=== PATIENT | male | born 1990 | race Caucasian/White ===

== ENCOUNTER 2017-03-25 21:27 | Emergency (ER) | payer BC, OTHER ==
[~2017-03-25] VITALS: Ht 190.5 cm; Wt 116.1 kg
--- NOTE | 2017-03-25 21:46 | ED Upper Extremity ---
General Chief Complaint: Upper Extremity Stated Complaint: LT HAND PAIN/SWELLING Source: patient History of Present Illness Time seen by provider: 21:38 Initial Comments C/O KNOT TO DORSAL ASPECT OF LEFT WRIST FOR A COUPLE OF DAYS PAIN IN AREA WITH GRIPPING OR TOUCHING IT TOUCHING IT OCCASIONALLY CAUSES TINGLING TO HAND NO RECENT OR OLD INJURY TO THIS WRIST/HAND PT IS RIGHT HANDED HAS NOT TAKEN ANYTHING FOR PAIN SYMPTOMS NO DIFFERENT TODAY PCP: DR. TRIANA, [facility] Allergies and Home Medications Allergies Coded Allergies: No Known Drug Allergies (Unverified , 03/25/17) Home Medications Methylprednisolone 4 Mg Tab.ds.pk, 4 MG PO UD, #1 Prescribed by: MADY VILLEGAS on 03/25/17 4159 Constitutional: no symptoms reported Musculoskeletal: see HPI Skin: no symptoms reported Psychiatric/Neurological: See HPI Past Jzlobky-Wtswad-Zajhyq Hx Patient Social History Recent Foreign Travel: No Contact w/Someone Who Travel: No Respiratory History of Respiratory Disorde: No Cardiovascular History of Cardiac Disorders: No Neurological History of Neurological Disord: No Genitourinary History of Genitourinary Disor: No Gastrointestinal History of Gastrointestinal Di: No Musculoskeletal History of Musculoskeletal Dis: No Endocrine History of Endocrine Disorders: No HEENT History of HEENT Disorders: No Cancer History of Cancer: No Psychosocial History of Psychiatric Problem: No Integumentary History of Skin or Integumenta: No Blood Transfusions History of Blood Disorders: No Physical Exam Vital Signs Vital Sign - Last 12Hours 03/25/17 21:39 Temp 97.3 Pulse 62 Resp 18 B/P (MAP) 129/91 Pulse Ox 98 O2 Delivery Room Air Capillary Refill : General Appearance: WD/WN, no apparent distress Elbow/Forearm: normal inspection, non-tender, no evidence of injury, normal ROM Wrist: Yes normal ROM, Yes bone tenderness, Yes nodules (TENDER 2 CM, SLIGHTLY FIRM NODULARITY TO DORSUM OF LEFT WRIST. NO ERYTHEMA, NO INDURATION, NO EXTERNAL EVIDENCE OF TRAUMA. FULL ROM. MOTOR/SENSORY/VASCULAR INTACT), Yes pain , Yes soft tissue tenderness Hand: normal inspection, non-tender, no evidence of injury, normal ROM Neurologic/Tendon: normal sensation, normal motor functions, normal tendon functions Neurologic/Psychiatric: volunteer recruiter II-XII nml as tested, no motor/sensory deficits, alert, normal mood/affect, oriented x 3 Skin: normal color, warm/dry Splinting and Joint Reduction : Splints: Pike Wrist Progress/Results/Core Measures Results/Orders My Orders Orders - MADY VILLEGAS DO Wrist, Left, 3 Views Or More (03/25/17 21:38) Wrist-Pike (03/25/17 21:55) Vital Signs/I&O Vital Sign - Last 12Hours 03/25/17 21:39 Temp 97.3 Pulse 62 Resp 18 B/P (MAP) 129/91 Pulse Ox 98 O2 Delivery Room Air Diagnostic Imaging Comments XRAYS LEFT WRIST--NO ACUTE PROCESS, PENDING RADIOLOGIST REVIEW Reviewed: Reviewed by Me Departure Impression Impression: Primary Impression: LEFT WRIST NODULE--POSSIBLE GANGLION CYST Disposition: HOME, SELF-CARE Condition: Stable Departure-Patient Inst. Referrals: GABBY TRIANA MD (PCP/Family) Primary Care Physician DEREJE CANNON MD Patient Instructions: Ganglion Cyst (DC), SPLINT CARE Add. Discharge Instructions: WEAR SPLINT AT ALL TIMES ICE TO AREA AT 20 MINUTE INTERVALS ELEVATE HAND MUCH POSSIBLE FOLLOW UP WITH DR. CANNON OR ORTHOPEDIC SURGEON OF CHOICE NEXT WEEK FOR FURTHER CARE--CALL IN AM FOR APPOINTMENT All discharge instructions reviewed with patient and/or family. Voiced understanding. Scripts Methylprednisolone (Medrol) 4 Mg Tab.ds.pk 4 MG PO UD, #1 PKG Prov: MADY VILLEGAS DO 03/25/17 Work/School Note: Work Release Form Date Seen in the Emergency Department: Mar 25, 2017 Return to Work: Mar 26, 2017 Restrictions: Need Release from Doctor Other Restrictions Listed Below: LIMITED USE OF LEFT HAND, UNTIL RELEASED BY DR. Maldonado Extremities-Upper 1 - Swelling, Tenderness MADY VILLEGAS Mar 25, 2017 21:46
[2017-03-25] MEDS ORDERED: METH4TAB PO (21:59)
[2017-03-25 22:09] VITALS: BP 129/91
--- NOTE | 2017-03-26 07:25 | Diagnostic Imaging Report ---
3 views of the left wrist. INDICATION: Left wrist pain. FINDINGS: There is no fracture, dislocation, or radiopaque foreign body. There is satisfactory joint alignment seen. IMPRESSION: Unremarkable exam. Dictated by: Dictated on workstation # [id number]
== END 2017-03-25 22:09 | disposition home or self-care (01) ==
LOC: EDUNIT# 21:27 → ER 21:31
DX: R22.32 Localized swelling, mass and lump, left upper limb (principal)
CPT/HCPCS: 73110; 99282

== ENCOUNTER 2020-12-18 04:09 | Emergency (ER) | payer SELFPAY ==
[~2020-12-18] VITALS: Ht 190.5 cm; Wt 113.3 kg
[~2020-12-18 04:09] MED LIST: METH4TAB PO
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
[2020-12-18 04:58] VITALS: BP 120/78
== END 2020-12-18 05:02 | disposition home or self-care (01) ==
LOC: EDUNIT# 04:09 → ER 04:15
DX: T28.1XXA Burn of esophagus, initial encounter (principal); Z77.22 Contact with and (suspected) exposure to environmental tobacco smoke (acute) (chronic)
CPT/HCPCS: 99282

== ENCOUNTER 2020-12-19 16:57 | Emergency (ER) | payer OTHER ==
[~2020-12-19] VITALS: Ht 190 cm; Wt 100.0 kg
[2020-12-19] MEDS ORDERED: LIDOCAINE 1% INJ 20 ML 20 ML VIAL INJ ONE (17:15)
--- NOTE | 2020-12-19 17:15 | ED Lower Extremity ---
General Chief Complaint: Laceration Stated Complaint: LEFT LEG LAC Source: patient Exam Limitations: no limitations History of Present Illness Date Seen by Provider: Dec 19, 2020 Time Seen by Provider: 17:10 Initial Comments 30-year-old male presents with a cut to his left leg that occurred at work just prior to arrival. States his leg was accidentally cut on a piece of metal sticking out that he did not see. Denies any other injury or pain. Tetanus is up-to-date, he had one last year. Allergies and Home Medications Allergies Coded Allergies: No Known Drug Allergies (Unverified , 03/25/17) Home Medications Methylprednisolone 4 Mg Tab.ds.pk, 4 MG PO UD Prescribed by: MADY VILLEGAS on 03/25/17 3639 Patient Home Medication List Home Medication List Reviewed: Yes Review of Systems Constitutional: no symptoms reported Musculoskeletal: other (pain left leg - wound) Skin: other (laceration to left leg) Past Ezwavpr-Sfxyxp-Neckzl Hx Past Med/Social Hx: Reviewed Nursing Past Med/Soc Hx Patient Social History Alcohol Beverage of Choice: Beer Type Used: Cigarettes 2nd Hand Smoke Exposure: Yes Recent Hopitalizations: No Immunizations Up To Date Tetanus Booster (TDap): Less than 5yrs PED Vaccines UTD: Yes Seasonal Allergies Seasonal Allergies: No Past Medical History Surgeries: No Respiratory: No Cardiac: No Neurological: No Genitourinary: No Gastrointestinal: No Musculoskeletal: No Endocrine: No HEENT: No Cancer: No Psychosocial: No Integumentary: No Blood Disorders: No Physical Exam Vital Signs Vital Signs - First Documented 12/19/20 17:10 Temp 36.4 Pulse 91 Resp 18 B/P (MAP) 137/83 (101) Pulse Ox 97 O2 Delivery Room Air Capillary Refill : Height, Weight, BMI Height: 6'3.00" Weight: 256lbs. oz. 116.426664zi; 31.00 BMI Method:Stated General Appearance: WD/WN, no apparent distress Procedures/Interventions Wound Location: Lower Extremities Wound Length (cm): 10 Wound's Depth, Shape: irregular, flap, contused tissue Wound Explored: no foreign body removed Anesthesia: 1% Lidocaine Volume Anesthetic (ccs): 15 Suture: Ethlion Suture Size: 3-0 Number of Sutures: 8 Sterile Dressing Applied?: Yes Progress/Results/Core Measures Results/Orders My Orders Orders - JENAE MERCHANT DO Lidocaine 1% Inj 20 Ml (Xylocaine 1% Inj (12/19/20 17:15) Medications Given in ED Current Medications Medications Dose Ordered Sig/Yoan Route Start Time Stop Time Status Last Admin Dose Admin Lidocaine HCl 20 ml ONCE ONCE INJ 12/19/20 17:15 12/19/20 17:18 DC 12/19/20 17:21 20 ML Vital Signs/I&O 12/19/20 12/19/20 17:10 18:06 Temp 36.4 36.4 Pulse 91 91 Resp 18 18 B/P (MAP) 137/83 (101) 137/83 (101) Pulse Ox 97 97 O2 Delivery Room Air Departure Impression Primary Impression: Laceration of leg, left Qualified Codes: S81.812A - Laceration without foreign body, left lower leg, initial encounter Disposition: 01 HOME, SELF-CARE Condition: Improved Departure-Patient Inst. Referrals: GABBY TRIANA MD (PCP/Family) Primary Care Physician Patient Instructions: Laceration Repair With Stitches (DC) Add. Discharge Instructions: follow up with your worker's comp or Dr Triana in 10 days for removal of your stitches. Call tomorrow to arrange a follow up appointment with your Worker's Comp doctor Keep the wound clean and dry Apply POLYSPORIN ointment to the wound once daily All discharge instructions reviewed with patient and/or family. Voiced understanding. JENAE MERCHANT DO Dec 19, 2020 17:15
[2020-12-19] MEDS ORDERED: LIDOCAINE 1% INJ 20 ML 20 ML VIAL ONE (17:18)
[2020-12-19 18:06] VITALS: BP 137/83
== END 2020-12-19 18:07 | disposition home or self-care (01) ==
LOC: EDUNIT# 16:57 → ER FS 16:58
DX: S81.812A Laceration without foreign body, left lower leg, initial encounter (principal); Z77.22 Contact with and (suspected) exposure to environmental tobacco smoke (acute) (chronic); Z79.52 Long term (current) use of systemic steroids; W31.1XXA Contact with metalworking machines, initial encounter; Y99.0 Civilian activity done for income or pay
CPT/HCPCS: 12032

== ENCOUNTER 2021-04-30 06:58 | Emergency (ER) | payer SELFPAY ==
[~2021-04-30] VITALS: Ht 190.5 cm; Wt 124.7 kg
--- NOTE | 2021-04-30 08:39 | Diagnostic Imaging Report ---
INDICATION: Trauma, left hip pain. FINDINGS: 4 views of the pelvis and left hip were obtained which shows no fracture, dislocation or other abnormality. The sacroiliac joints and symphysis pubis appear normal. IMPRESSION: No abnormality is seen. Dictated by: Dictated on workstation # [id number]
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
[2021-04-30 09:07] VITALS: BP 127/82
== END 2021-04-30 09:07 | disposition home or self-care (01) ==
LOC: EDUNIT# 06:58 → ER 07:04
DX: S40.812A Abrasion of left upper arm, initial encounter (principal); M25.552 Pain in left hip; Z79.52 Long term (current) use of systemic steroids; V89.2XXA Person injured in unspecified motor-vehicle accident, traffic, initial encounter

== ENCOUNTER 2021-06-10 20:54 | Emergency (ER) | payer OTHER ==
[~2021-06-10] VITALS: Ht 190 cm; Wt 113.0 kg
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
[2021-06-10 22:05] VITALS: BP 120/87
== END 2021-06-10 22:08 | disposition home or self-care (01) ==
LOC: EDUNIT# 20:54 → ER 20:57
DX: S09.90XA Unspecified injury of head, initial encounter (principal); F17.210 Nicotine dependence, cigarettes, uncomplicated; R40.2410 Glasgow coma scale score 13-15, unspecified time; V89.2XXA Person injured in unspecified motor-vehicle accident, traffic, initial encounter
CPT/HCPCS: 70450